=== PATIENT | female | born 2000 | race Caucasian/White ===

== ENCOUNTER 2023-01-19 10:06 | Outpatient (CLI) | payer MEDICAID ==
[~2023-01-19 10:06] MED LIST: CYCL-1 PO; DICY10CA88 PO; FAMO-128 PO; HYDR-3095 PO; IBUP-1985 PO; ZOF4T PO
== END 2023-01-19 23:59 | disposition home or self-care (01) ==
LOC: RAD 10:06
PROVIDERS: ATTEND Physician Assistant
DX: O46.91 Antepartum hemorrhage, unspecified, first trimester (principal); Z3A.01 Less than 8 weeks gestation of pregnancy
CPT/HCPCS: 76801; 76817; 76830